=== PATIENT | female | born 1955 | race Caucasian/White ===

== ENCOUNTER 2017-06-09 23:13 | Emergency (ER) | payer MEDICAID ==
[~2017-06-09] VITALS: Ht 170.2 cm; Wt 109.0 kg
[~2017-06-09 23:13] MED LIST: ALBU18HF PO; ALBU2.5V NEB; ANTACID PO; CLOB15CR19 TP; CYCL5TAB PO; FLUT16SP NS; FURO20TA3 PO; HYDR-3241 PO; HYDR25TA11 PO; IPRA0.2S35 INH; IPRA15SP2 PO; LORA10TA3 PO; LOSA50TA6 PO; MECL25TA4 PO; NAPR500T3 PO; NYST60PO TP; PRAV20TA2 PO; SYMBICORT; TRIA1CAP3 PO; ZOLP5TAB6 PO
[2017-06-09 23:15] VITALS: BP 132/83
[2017-06-10] MEDS ORDERED: HYDROcodone/APAP 5/325 TABLET PO STA (00:15)
[2017-06-10] MEDS ORDERED: HYDROcodone/APAP 5/325 TABLET ONE (01:10)
== END 2017-06-10 01:35 | disposition home or self-care (01) ==
LOC: ED 06-10 01:29
DX: S39.012A Strain of muscle, fascia and tendon of lower back, initial encounter (principal); S80.01XA Contusion of right knee, initial encounter; S50.311A Abrasion of right elbow, initial encounter; S50.312A Abrasion of left elbow, initial encounter; J44.9 Chronic obstructive pulmonary disease, unspecified; F17.210 Nicotine dependence, cigarettes, uncomplicated; W01.0XXA Fall on same level from slipping, tripping and stumbling without subsequent striking against object, initial encounter; Y93.01 Activity, walking, marching and hiking; Y92.89 Other specified places as the place of occurrence of the external cause; Y99.8 Other external cause status
CPT/HCPCS: 72110; 99284

== ENCOUNTER 2019-04-27 23:29 | Emergency (ER) | payer BC, MEDICAID ==
[~2019-04-27] VITALS: Ht 170.2 cm; Wt 95.0 kg
[~2019-04-27 23:29] MED LIST changes: -FLUT16SP NS; +FLUT16SP24 NS; +HYDR-826 PO; -HYDR25TA11 PO; +LORA-247 PO; -LORA10TA3 PO; +LOSA50TA14 PO; -LOSA50TA6 PO; +NAPR-685 PO; -NAPR500T3 PO
[2019-04-28] MEDS ORDERED: SODIUM CHLORIDE FLUSH 10ML SYR IVF ONE
[2019-04-28] MEDS ORDERED: ONDANSETRON 2MG/ML, 2ML IVPush ONE
--- NOTE | 2019-04-28 00:08 | NUR ---
STERILE STRAIGHT CATH. UA SENT TO THE LAB.
[2019-04-28] MEDS ORDERED: ONDANSETRON 2MG/ML, 2ML ONE (00:12)
[2019-04-28 00:13] LABS: BASOPHILS # (AUTO) 0.07 x10^3/uL (0-0.1); BASOPHILS % (AUTO) 1 % (0-1); EOSINOPHILS # (AUTO) 0.18 x10^3/uL (0-0.4); EOSINOPHILS % (AUTO) 1 % (1-7); LYMPHOCYTES % (AUTO) 26 % (22-44); MD NO; MEAN CORPUSCULAR HEMOGLOBIN 30.8 pg (27.0-34.8); MEAN CORPUSCULAR HGB CONC 33.5 g/dL (32.4-35.8); MEAN CORPUSCULAR VOLUME 91.9 fL (80-100); MEAN PLATELET VOLUME 6.7 fL (7.4-10.4); MONOCYTES # (AUTO) 0.17 x10^3/uL (0.2-0.8); MONOCYTES % (AUTO) 1 % (2-9); NEUTROPHILS # (AUTO) 10.05 x10^3/uL (1.8-6.8); NEUTROPHILS % (AUTO) 71 % (42-75); PLATELET COUNT 379 x10^3/uL (130-400); RED BLOOD COUNT 4.05 x10^6/uL (3.82-5.3); RED CELL DISTRIBUTION WIDTH 13.9 % (9.6-15.2)
[2019-04-28] MEDS ORDERED: MORPHINE SULFATE 4 MG/ML, 1ML ONE ×4 (00:13→01:45)
--- NOTE | 2019-04-28 00:15 | NUR ---
START W/ 4 MG OF MORPHINE PER PT. WILL REPEAT PER PT IF NEEDED.
[2019-04-28 00:26] LABS: ALANINE AMINOTRANSFERASE 30 U/L (12-78); ALBUMIN 3.5 g/dL (3.4-5.0); ANION GAP 10 mmol/L (5-15); CALCIUM 8.8 mg/dL (8.5-10.1); CHLORIDE 109 mmol/L (98-107); CREATININE 1.09 mg/dL (0.55-1.02)
[2019-04-28 00:28] LABS: ALKALINE PHOSPHATASE 88 U/L (45-117); BILIRUBIN,TOTAL 0.6 mg/dL (0.2-1.0); TOTAL PROTEIN 7.9 g/dL (6.4-8.2)
--- NOTE | 2019-04-28 00:37 | NUR ---
NO FUTHER REPORTS OF PAIN AT THIS TIME.
[2019-04-28 00:49] LABS: MICROSCOPIC AUTO
--- NOTE | 2019-04-28 00:50 | NUR ---
THE PT WAS GIVEN THE OTHER 1/2 OF THE MORHINE AT THIS TIME FOR THE TOTAL DOSE OF 8 MG. STARTED LOW TO RE-ASSESS THE PT.
--- NOTE | 2019-04-28 00:51 | NUR ---
6/10 PAIN PER THE PT.
[2019-04-28 00:52] LABS: CULTURE INDICATED? YES
[2019-04-28] MEDS ORDERED: MORPHINE SULFATE 4 MG/ML, 1ML IVPush ONE ×2 (01:00)
[2019-04-28] MEDS ORDERED: KETOROLAC 30 MG/1 ML IVPush ONE (01:00)
[2019-04-28] MEDS ORDERED: KETOROLAC 30 MG/1 ML ONE (01:43)
--- NOTE | 2019-04-28 02:03 | NUR ---
Pt mild desat after morphine admin. Placed on 2L nc.
--- NOTE | 2019-04-28 02:33 | NUR ---
THE PT STAED THE PT IS BETTER BUT NOT GONE. ERP IN TO RE-EVALUATE THE PT.
--- NOTE | 2019-04-28 03:35 | NUR ---
D/C INST REVIEWED W/ THE PT TO INCLUDE F/U OP W/ UROLOGIST, PCP, DIET, PAIN MANAGEMENT AND RETURN NEEDED. THE PT VERB UNDERSTANDING AND DENIES QUESTIONS. THE PT WAS ASST OUT TO POV IN A W/C. D/C TO THE CARE OF HER SPOUSE.
[2019-04-28 03:36] VITALS: BP 106/56
== END 2019-04-28 03:41 | disposition home or self-care (01) ==
LOC: ED 04-28 03:26
DX: N20.2 Calculus of kidney with calculus of ureter (principal); R31.9 Hematuria, unspecified; J44.9 Chronic obstructive pulmonary disease, unspecified; Z87.891 Personal history of nicotine dependence; Z90.49 Acquired absence of other specified parts of digestive tract
CPT/HCPCS: 36415; 74176; 80053; 81001; 83690; 85025; 87086; 96374; 96375; 96376; 99284; J1885; J2270; J2405